=== PATIENT | female | born 1990 | race Asian ===

== ENCOUNTER 2017-03-01 23:38 | Inpatient (IN) | payer BC ==
[~2017-03-01] VITALS: Ht 162.6 cm; Wt 43.3 kg
--- NOTE | 2017-03-02 01:07 | NUR ---
PT PRESENTED TO ED WITH C/O RIGHT FLANK PAIN AND LOWER ABD PAIN SINCE EARLIER TODAY. ABD NON-TENDER TO TOUCH, NO PALPABLE MASSESS NOTED. PT DESCRIBES PAIN SHARP, ON A SCALE 8/10. PT DENIES BLOOD IN URINE OR PAIN WHEN VOIDING. PT STATES HX OF KIDNEY STONES. PT AAO4, BREATHING EVEN AND UNLABORED. AWAITING MSE
--- NOTE | 2017-03-02 01:15 | NUR ---
DR. HAMPTON AT BEDSIDE
[2017-03-02 01:46] LABS: BASOPHIL % 0.6 % (0-2); PLATELET COUNT 235 x10^3mcL (130-400); RED CELL DISTRIBUTION WIDTH 13.6 % (11.5-14.5)
--- NOTE | 2017-03-02 01:47 | NUR ---
MEDICATED PT PER E-MAR, PT TOLERATED
[2017-03-02 02:00] LABS: ALBUMIN 3.7 g/dL (3.4-5.0); BILIRUBIN TOTAL 0.53 mg/dL (0.20-1.00); CALCIUM 8.8 mg/dL (8.5-10.1); CARBON DIOXIDE 23.5 mmol/L (21-32); CREATININE SERUM 1.3 mg/dL (0.6-1.0); TOTAL PROTEIN, SERUM 7.2 g/dL (6.4-8.2); URIC ACID 5.1 mg/dL (2.6-6.0)
--- NOTE | 2017-03-02 02:38 | NUR ---
PT MEDICATED WITH 40MEQ POTASSIUM PO PER MD ORDERS FOR A POTASSIUM LEVEL OF 2.6
--- NOTE | 2017-03-02 02:53 | NUR ---
PT TAKEN TO CT VIA [facility]
--- NOTE | 2017-03-02 03:47 | NUR ---
PT RESTING, REPORTS PAIN HAS DECREASED AFTER MED GIVEN. PT AAOX4, BREATHING EVEN AND UNLABORED. PT IN NO ACUTE DISTRESS
--- NOTE | 2017-03-02 04:52 | NUR ---
PT RESTING, REPORTS PAIN HAS DECREASED. PT AAOX4, BREATHING EVEN AND UNLABORED. PT IN NO ACUTE DISTRESS.
--- NOTE | 2017-03-02 05:24 | NUR ---
DR HAMPTON AT BEDSIDE DISCUSSING PLAN OF CARE WITH PT
[2017-03-02 05:29] LABS: POTASSIUM SERUM 2.6 mmol/L (3.5-5.1)
--- NOTE | 2017-03-02 07:10 | NUR ---
REPORT RECIEVED FROM TRAVON DONNELLY, I WILL ASSUME CARE PRIMARY RN.
--- NOTE | 2017-03-02 07:11 | NUR ---
PT RESTING IN LOW POSITIONED BED, SIDE RAILS UP X2. CALL LIGHT WITHIN REACH. PT SLEEPING UPON ENTERING ROOM. PT DOES NOT APPEAR IN ANY SIGNS OF DISTRESS. PTS SIGNIFICANT OTHER AT BEDSIDE.
--- NOTE | 2017-03-02 07:24 | NUR ---
GAVE REPORT TO MARCIA DONNELLY, TO ASSUME CARE POST TRANSFER
--- NOTE | 2017-03-02 07:46 | NUR ---
PORTABLE XRAY AT BEDSIDE.
[2017-03-02 07:47] LABS: microscopic required? NO
[2017-03-02 08:07] LABS: T3 TOTAL 1.21 ng/mL
--- NOTE | 2017-03-02 08:10 | NUR ---
RECEIVED PT FROM ED WITH CC L FLANK AND MID LOWER ABD PAIN X 1 DAY. WITH HX RENAL STONES. C/O URINARY HESITANCY AND ACID REFLUX. STATES PAIN IS 4/10 PRESSURE LIKE FROM L FLANK RADIATING TO LOWER ABD, TOLERABLE AT THIS TIME. IV TO LAC. ORIENTED TO ROOM AND SURROUNDINGS. BED IN LOW POSITION, CALL LIGHT WITHIN REACH. WILL CONTINUE TO MONITOR.
[2017-03-02 08:21] VITALS: BP 96/67
[2017-03-02 09:11] LABS: UA SPECIFIC GRAVITY <=1.005 (1.005-1.035); urine erythrocyte NEGATIVE (NEGATIVE)
[2017-03-02 09:18] LABS: MAGNESIUM 1.3 mg/dL (1.8-2.4); PHOSPHOROUS 3.9 mg/dL (2.5-4.9)
[2017-03-02 09:20] LABS: FREE T4 1.1 ng/dL (0.76-1.46)
[2017-03-02 09:22] LABS: CHOLESTEROL/HDL RATIO 2.3
[2017-03-02 10:11] VITALS: BP 96/67
[2017-03-02 10:32] LABS: AMPHETAMINE QUAL UR NONE DETECTED (NEG <=1000)
--- NOTE | 2017-03-02 12:53 | NUR ---
PT RESTING IN BED. NO ACUTE DISTRESS. NO PAIN NOTED. IVF INFUSING. BED IN LOW POSITION, CALL LIGHT WITHIN REACH. WILL CONTINUE TO MONITOR.
[2017-03-02 13:24] VITALS: BP 97/69
[2017-03-02 17:35] VITALS: BP 99/71
--- NOTE | 2017-03-02 18:52 | NUR ---
PT RESTING IN BED. NO ACUTE DISTRESS. DENIES PAIN AT THIS TIME. PT TEARFUL REGARDING IVF INFUSION RATE, REPEATEDLY ASKS TO DECREASE AND INCREASE INFUSION RATE. EXPLAINED TO PT REGARDING DOCTOR'S ORDERS. PT VERBALIZED UNDERSTANDING. BED IN LOW POSITION, CALL LIGHT WITHIN REACH. WILL ENDORSE TO INCOMING SHIFT.
--- NOTE | 2017-03-02 19:32 | NUR ---
RECEIVED PT FROM PREVIOUS SHIFT. PT SLEEPING/AROUSABLE/ORIENTED X4. DENIES PAIN. DENIES SOB ON RA. IV PATENT AND INFUSING WELL WITH NO S/S OF INFILTRATION. CALL LIGHT WITHIN REACH, BED IN LOW POSITION. WILL CONITNUE TO MONITOR.
[2017-03-02 20:46] VITALS: BP 104/68
--- NOTE | 2017-03-02 21:48 | NUR ---
PT C/O FEELING SWOLLEN DUE TO FLUID OVERLOAD. NS INFUSING AT 80ML/HR WITH NO S/S OF INFILTRATION. NO EDEMA NOTED ON PT. DR PALOMINO NOTIFIED. DR PALOMINO AT BEDSIDE SPEAKING WITH PATIENT ABOUT IMPORTANCE OF FLUID HYDRATION TO FLUSH STONES. WILL CONTINUE TO MONITOR
--- NOTE | 2017-03-02 23:24 | NUR ---
PT REFUSING IV FLUID HYDRATION. DR PALOMINO NOTIFIED. INFUSION STOPPED AND IV HEPLOCKED PER DR PALOMINO AT THIS TIME.
--- NOTE | 2017-03-03 00:31 | NUR ---
PT RESTING IN NO ACUTE DISTRESS. RR EVEN AND UNLABORED. IV PATENT. CALL LIGHT WITHIN REACH, BED IN LOW POSITION.WILL CONTINUE TO MONITOR.
[2017-03-03 05:28] VITALS: BP 105/76
[2017-03-03 06:18] LABS: BASOPHIL % 0.6 % (0-2); PLATELET COUNT 163 x10^3mcL (130-400); RED CELL DISTRIBUTION WIDTH 13.5 % (11.5-14.5)
[2017-03-03 06:35] LABS: CALCIUM 8.2 mg/dL (8.5-10.1); CARBON DIOXIDE 20.4 mmol/L (21-32); CREATININE SERUM 1.3 mg/dL (0.6-1.0); MAGNESIUM 2.3 mg/dL (1.8-2.4); PHOSPHOROUS 3.9 mg/dL (2.5-4.9); POTASSIUM SERUM 3.5 mmol/L (3.5-5.1)
--- NOTE | 2017-03-03 07:20 | NUR ---
RECEIVED PT IN NO ACUTE DISTRESS. RESTING WITH EYES CLOSED. NO PAIN NOTED. IV TO LAC SALINE LOCKED. BED IN LOW POSITION, CALL LIGHT WITHIN REACH. WILL CONTINUE TO MONITOR.
[2017-03-03 10:35] VITALS: BP 98/65
--- NOTE | 2017-03-03 12:36 | NUR ---
PT RESTING IN BED. NO ACUTE DISTRESS. APPEARS COMFORTABLE, NO PAIN NOTED. BED IN LOW POSITION, CALL LIGHT WITHIN REACH. WILL CONTINUE TO MONITOR.
[2017-03-03 13:31] VITALS: BP 101/75; BP 99/70
[2017-03-03] MEDS ORDERED: FLO4 PO (14:16)
[2017-03-03] MEDS ORDERED: MOT600 PO (14:28)
[2017-03-03] MEDS ORDERED: COLACE100 MG PO (14:28)
[2017-03-03] MEDS ORDERED: NORCO1 TA2 PO (14:29)
[2017-03-03 15:15] VITALS: BP 99/70
--- NOTE | 2017-03-03 16:01 | NUR ---
PT DISCHARGED TO HOME IN NO ACUTE DISTRESS. AWAKE, ALERT, AND ORIENTED. VSS. TRANSPORTED VIA WHEELCHAIR. RX GIVEN. DISCHARGE EDUCATION PROVIDED, PT VERBALIZED UNDERSTANDING. INSTRUCTED PT TO FOLLOW UP WITH PCP. BELONGINGS WITH PT. IV DC'D INTACT. TELE REMOVED. ANDERSON MALLORY ACCOMPANIED PT TO LOBBY.
== END 2017-03-03 16:02 | disposition home or self-care (01) | DRG 693 ==
LOC: ED 23:38 → DU 03-02 05:26 → UNDODEPER 03-02 05:40 → DU 03-02 08:03
PROVIDERS: Emergency Medicine; ADMIT Family Medicine Sports Medicine
DX: N20.1 Calculus of ureter (principal); N17.0 Acute kidney failure with tubular necrosis; K21.9 Gastro-esophageal reflux disease without esophagitis; E87.6 Hypokalemia; E83.42 Hypomagnesemia; E78.5 Hyperlipidemia, unspecified; Z87.442 Personal history of urinary calculi; Z88.0 Allergy status to penicillin
CPT/HCPCS: 83880; 84439; J1885; J2405; J3010; J3475; J3480; J7030; Q0092